=== PATIENT | female | born 1985 | race Caucasian/White ===

== ENCOUNTER → 2018-11-21 | Outpatient (CLI) | payer OTHER ==
--- NOTE | 2018-11-22 09:00 | RADIOLOGY REPORT (SQ) ---
EXAM DESCRIPTION: MRI LT LOWER EXTREMITY COMBO COMPLETED DATE/TIME: 11/21/2018 1:14 pm REASON FOR STUDY: M79.89 OTHER SPECIFIED SOFT TISSUE DISORDERS M79.89 OTHER SPECIFIED SOFT TISSUE D ISORDERS COMPARISON: Report only, CT left lower leg, [facility] 11/15/2018 TECHNIQUE: Multiplanar imaging of the left lower leg to include T1-weighted, postcontrast T1-weighte d, and T2-weighted images. CONTRAST TYPE AND DOSE: 15 mL Dotarem. RENAL FUNCTION: Not indicated. ACR Type II contrast agent associated with few, if any, unconfounded cases of NSF LIMITATIONS: None. FINDINGS: On sagittal postcontrast fat-sat T1 series 13, images 14 and 15 demonstrate clot in the le ft popliteal vein and peroneal veins. These findings are also seen on axial images 10 through 23, po stcontrast series 11. This finding was discussed with Giovany Palomares, 0900 hours 11/22/2018. Fat-sat T2/stir images demonstrate edema throughout the peroneus, soleus, and gastrocnemius muscle. There is mild subcutaneous edema along the lower 3rd of the left lower leg. No discrete fluid pocket worrisome for abscess or hematoma. BONE MARROW: No marrow signal alteration. Specifically no marrow replacement or marrow edema. No ev idence for osteomyelitis. No cortical break through. OTHER: No other significant finding. IMPRESSION: NO EVIDENCE FOR OSTEOMYELITIS. LEFT CALF DEEP VENOUS THROMBOSIS IN THE POPLITEAL VEIN AND PERONEAL VEINS. COMMENT: Pertinent findings on the imaging study reported as a CRITICAL RESULT to GIOVANY Gallardo at08:51 on 11/22/2018. Category of Critical Result: Left lower extremity deep venous thrombosis TECHNICAL DOCUMENTATION: JOB ID: [id number] [employer]- All Rights Reserved Reading location - IP/workstation name: [email or web address]
== END ==
LOC: RAD 11:52
PROVIDERS: ATTEND Physician Assistant Medical
DX: I82.432 Acute embolism and thrombosis of left popliteal vein (principal); M79.89 Other specified soft tissue disorders
CPT/HCPCS: 73720; A9576